=== PATIENT | male | born 2000 | race Caucasian/White ===

== ENCOUNTER 2024-03-10 08:23 | Observation (INO) ==
--- NOTE | 2024-03-10 08:41 | Emergency Department Note ---
Impression & Plan Vomiting and diarrhea, Acute dehydration, Leukocytosis, Hypomagnesemia ED Provider Note NAME: SHELLI MANUEL AGE: 23 SEX: M : 2000 ARRIVES VIA: Ambulance INFORMANT: [Patient] ED PROVIDER(S): [Tim Narayanan MD] CHIEF COMPLAINT: Vomiting and diarrhea HISTORY OF PRESENT ILLNESS: The patient is a 23-year-old male who states she has had 4 hours of vomiting and diarrhea. He has some crampy abdominal pain. Mostly, he complains of the nausea and dry heaves. The patient does present by ambulance. He denies sick contacts or bad food eaten. This seemed to come on him fairly suddenly this morning just 4 hours ago. He does admit to drinking some alcohol, vodka, 48 hours ago, he does not believe he is hung over. PMHx/PSHx/Social Hx: See Below PHYSICAL EXAM: GENERAL: Patient is in mild distress, seems uncomfortable. HEENT: No acute trauma, normocephalic atraumatic, mucous membranes moist, no nasal congestion. NECK: No stridor, no adenopathy, no meningismus, trachea is midline. LUNGS: Clear to auscultation bilaterally, no wheeze, no rhonchi, breath sounds equal. HEART: Mildly tachycardic, regular rhythm, no murmurs. ABDOMEN: Soft, no distention, mildly diffusely tender. EXTREMITIES: No cyanosis, full range of motion of all the joints without pain or difficulty. NEUROLOGIC: Oriented x 3, no acute motor or sensory deficits, no focal weakness. SKIN: No jaundice, no diaphoresis. DIFFERENTIAL DIAGNOSIS: Foodborne or viral illness, bacterial intestinal infection, electrolyte imbalance, dehydration, among others. EMERGENCY DEPARTMENT PROCEDURES: MEDICAL DECISION MAKING: There is a mild leukocytosis, this could be consistent with infection or just his vomiting. There is a normal hemoglobin and platelet count. Magnesium somewhat low at 1.5. No renal failure. No concerning liver enzyme elevation. No evidence for pancreatitis. On exam, the patient seemed uncomfortable and was complaining of nausea. He was mildly tachycardic. The patient received IV Tylenol, IV Pepcid, IV Toradol, IV magnesium, IV Zofran and IV Phenergan. He received additional IV Zofran. He was given 2 L of IV saline. Patient was observed in the ED for over 5 hours, he is still nauseated and is not tolerating oral intake. I do not think he is safe for discharge. He will require further IV hydration and symptom control in the hospital. I spoke with the patient and case management. The on-call hospitalist was consulted. I suspect the patient's illness is viral or foodborne. Unfortunately, he has not been able to provide a stool sample for testing. Prior/Outside records/notes reviewed: Today's EMS notes describing his presentation and transport to this hospital. Imaging/x-ray results per my interpretation: Chronic Medical/Social conditions affecting care: College student. Care/Management discussed with: Case management, the on-call hospitalist. Level of care consideration(s): After review of the information above and other included data: --I believe the patient requires escalation of care to admission DISPOSITION: Admission Past Med/Surg History Problem List Gastroenteritis Social History Smoking Status: Unknown if ever smoked Feels Safe at Home: Yes Results & Data (ED) Vital Signs Vital Signs - 24 hr 03/10/24 08:30 03/10/24 09:03 03/10/24 09:35 Temperature 36.7 C Temperature Source Oral Pulse Rate 115 H 97 H Pulse Rate [Apical] 98 H Respiratory Rate 22 20 Respiratory Effort / Characteristics Non-Labored Spontaneous Non-Labored Spontaneous Respiratory Depth Normal Normal Respiratory Pattern Blood Pressure 125/99 Blood Pressure [Left Arm] 102/73 Blood Pressure Mean 107 Blood Pressure Mean [Left Arm] 82 Blood Pressure Position [Left Arm] Pulse Oximetry 97 97 Oxygen Delivery Method Room Air Room Air Sepsis Recent Fever Within 48 Hours No Sepsis New/Unexplained Change in Mental Status No Sepsis Action Taken by Nursing No Action Required 03/10/24 10:46 03/10/24 11:00 03/10/24 13:00 Temperature 36.9 C Temperature Source Oral Pulse Rate Pulse Rate [Apical] 95 H 99 H 95 H Respiratory Rate 20 15 19 Respiratory Effort / Characteristics Non-Labored Spontaneous Non-Labored Spontaneous Non-Labored Spontaneous Respiratory Depth Normal Normal Normal Respiratory Pattern Regular Blood Pressure Blood Pressure [Left Arm] 139/83 138/83 141/78 H Blood Pressure Mean Blood Pressure Mean [Left Arm] 101 101 99 Blood Pressure Position [Left Arm] Pulse Oximetry 95 98 97 Oxygen Delivery Method Room Air Room Air Room Air Sepsis Recent Fever Within 48 Hours Sepsis New/Unexplained Change in Mental Status Sepsis Action Taken by Nursing 03/10/24 13:06 03/10/24 14:00 Temperature Temperature Source Pulse Rate 100 H Pulse Rate [Apical] 97 H Respiratory Rate 17 Respiratory Effort / Characteristics Non-Labored Spontaneous Respiratory Depth Normal Respiratory Pattern Regular Blood Pressure Blood Pressure [Left Arm] 154/82 H Blood Pressure Mean Blood Pressure Mean [Left Arm] 106 Blood Pressure Position [Left Arm] Semi-fowlers Pulse Oximetry 99 Oxygen Delivery Method Room Air Sepsis Recent Fever Within 48 Hours Sepsis New/Unexplained Change in Mental Status Sepsis Action Taken by [facility] Medications Current Medication List: was personally reviewed by me Laboratory Data Attestation: I reviewed the patient's lab results. 03/10/24 09:05 03/10/24 09:05 Lab Results 03/10/24 Range/Units 09:05 WBC 12.32 H (4.8-10.8) K/ul RBC 5.81 (4.70-6.10) M/uL Hgb 17.8 (14.0-18.0) g/dl Hct 51.4 (42.0-52.0) % MCV 88.5 (80.0-100.0) fL MCH 30.6 (25.0-34.0) pg MCHC 34.6 (32.0-36.0) g/dL RDW Std Deviation 40.5 (36.4-46.3) fL RDW Coeff of Melissa 12.5 (11.5-14.5) % Plt Count 265 (130-400) K/uL MPV 9.8 (9.4-12.4) fL Immature Gran % (Auto) 0.3 % Neut % (Auto) 92.0 % Lymph % (Auto) 2.8 % Hart % (Auto) 4.5 % Eos % (Auto) 0.2 % Baso % (Auto) 0.2 % Neut # (Auto) 11.33 H (1.40-6.50) K/uL Lymph # (Auto) 0.34 L (1.20-3.40) K/uL Hart # (Auto) 0.55 (0.11-0.59) K/uL Eos # (Auto) 0.03 (0.00-0.50) K/uL Baso # (Auto) 0.03 (0.00-0.20) K/uL Immature Gran # (Auto) 0.04 (0.01-0.20) K/uL Sodium 138 (136-145) mmol/L Potassium 3.6 (3.5-5.1) mmol/L Chloride 102 (98-107) mmol/L Carbon Dioxide 24 (21-32) mmol/L Anion Gap 12 H (3-11) BUN 16 (6-23) mg/dl Creatinine 0.90 (0.6-1.4) mg/dl Est Cr Clr Drug Dosing 148.6 ml/min eGFR 124.61 BUN/Creatinine Ratio 17.8 (10-20) Glucose 136 H (70-99(Fasting)) mg/dl Calcium 9.6 (8.6-10.3) mg/dl Magnesium 1.5 L (1.7-2.4) mg/dl Total Bilirubin 1.3 H (0.2-1.0) mg/dl AST 24 (13-39) U/L ALT 32 (7-52) U/L Alkaline Phosphatase 72 (34-104) U/L Total Protein 7.2 (6.0-8.3) gm/dl Albumin 4.6 (3.4-5.0) gm/dl Globulin 2.6 (2.5-4.0) gm/dl Albumin/Globulin Ratio 1.8 (0.9-2) Lipase 10 L (11-82) U/L Administered Medications Discontinued Medications Promethazine HCl (Phenergan) 6.25 mg in 50.25 mls @ 201 mls/hr IV NOW STA Stop: 03/10/24 08:51 Last Infusion: 03/10/24 09:15 Dose: Infused Documented By: Admin: 03/10/24 08:48 Dose: 201 mls/hr Documented By: HS Sodium Chloride (Nss) 1,000 mls @ 999 mls/hr IV .Q1H1M ONE Stop: 03/10/24 09:37 Last Infusion: 03/10/24 09:49 Dose: Infused Documented By: Admin: 03/10/24 08:46 Dose: 999 mls/hr Documented By: HS Acetaminophen (Ofirmev) 1,000 mg in 100 mls @ 400 mls/hr IV NOW STA Stop: 03/10/24 08:51 Last Infusion: 03/10/24 09:15 Dose: Infused Documented By: Admin: 03/10/24 08:48 Dose: 400 mls/hr Documented By: ANNITA Magnesium Sulfate/Dextrose (Magnesium Sulfate / D5w) 1 gm in 100 mls @ 100 mls/hr IV NOW STA Stop: 03/10/24 11:25 Last Infusion: 03/10/24 11:43 Dose: Infused Documented By: Admin: 03/10/24 10:43 Dose: 100 mls/hr Documented By: ANNITA Sodium Chloride (Nss) 1,000 mls @ 999 mls/hr IV .Q1H1M ONE Stop: 03/10/24 11:27 Last Infusion: 03/10/24 11:45 Dose: Infused Documented By: Admin: 03/10/24 10:43 Dose: 999 mls/hr Documented By: ANNITA Famotidine (Pepcid 20mg Iv Push) 20 mg in 5 mls @ 2.5 mls/min IV NOW STA Stop: 03/10/24 12:06 Last Admin: 03/10/24 12:17 Dose: 2.5 mls/min Documented By: RONDA Ketorolac Tromethamine (Ketorolac Tromethamine 15 Mg/Ml Vial) 15 mg IV NOW STA Stop: 03/10/24 08:38 Last Admin: 03/10/24 08:48 Dose: 15 mg Documented By: ANNITA Ketorolac Tromethamine (Ketorolac Tromethamine 15 Mg/Ml Vial) 10 mg IV NOW ONE Stop: 03/10/24 12:06 Last Admin: 03/10/24 12:21 Dose: 10 mg Documented By: RONDA Ondansetron HCl (Ondansetron Inj 2 Mg/Ml 2 Ml Vial) 4 mg IV NOW STA Stop: 03/10/24 08:38 Last Admin: 03/10/24 08:48 Dose: 4 mg Documented By: ANNITA Ondansetron HCl (Ondansetron Inj 2 Mg/Ml 2 Ml Vial) 4 mg IV NOW STA Stop: 03/10/24 12:06 Last Admin: 03/10/24 12:19 Dose: 4 mg Documented By: RONDA Discharge Plan Visit Data Chief Complaint: Vomiting ED Provider: Tim Narayanan Discharge Problem: Vomiting and diarrhea, Acute dehydration, Leukocytosis, Hypomagnesemia Patient Disposition: Admitted As Inpatient Condition: Fair Forms Stand Alone Forms: [facility] Referrals Referrals: PCP,NO [Physician] - Discharge Problem: Leukocytosis Qualifiers: Leukocytosis type: unspecified Qualified Code(s): D72.829 - Elevated white blood cell count, unspecified
[2024-03-10] MEDS: SODIUM CHLORIDE 0.9% 1,000 ML IV ONE ×2 (08:46→10:43)
[2024-03-10] MEDS: KETOROLAC TROMETHAMINE 15 MG/ML VIAL IV STA (08:48)
[2024-03-10] MEDS: ONDANSETRON INJ 2 MG/ML 2 ML VIAL IV STA ×2 (08:48→12:19)
[2024-03-10] MEDS: PROMETHAZINE 6.25 MG/50.25 ML BAG IV STA (08:48)
[2024-03-10] MEDS: ACETAMINOPHEN 1,000 MG/100 ML VIAL IV STA (08:48)
[2024-03-10 09:37] LABS: Hematocrit (blood only) 51.4 % (42.0-52.0); Hemoglobin 17.8 g/dl (14.0-18.0); Mean Corpuscular Hemoglobin 30.6 pg (25.0-34.0); Mean Corpuscular Hgb Conc 34.6 g/dL (32.0-36.0); Mean Corpuscular Volume 88.5 fL (80.0-100.0); Mean Platelet Volume 9.8 fL (9.4-12.4); Platelet Count 265 K/uL (130-400); RDW Coefficient of Variation 12.5 % (11.5-14.5); RDW Standard Deviation 40.5 fL (36.4-46.3); Red Blood Count 5.81 M/uL (4.70-6.10); White Blood Count 12.32 K/ul (4.8-10.8)
[2024-03-10 09:56] LABS: Albumin Globulin Ratio 1.8 (0.9-2); Albumin Level 4.6 gm/dl (3.4-5.0); BUN Creatinine Ratio 17.8 (10-20); Bilirubin,Total 1.3 mg/dl (0.2-1.0); Calcium 9.6 mg/dl (8.6-10.3); Creatinine Clr Calc Pharmacy 148.6 ml/min; Globulin 2.6 gm/dl (2.5-4.0); Magnesium 1.5 mg/dl (1.7-2.4); Potassium 3.6 mmol/L (3.5-5.1); Total Protein 7.2 gm/dl (6.0-8.3)
[2024-03-10 09:59] LABS: Basophils # (auto) 0.03 K/uL (0.00-0.20); Basophils % (auto) 0.2 %; Eosinophils # (auto) 0.03 K/uL (0.00-0.50); Eosinophils % (auto) 0.2 %; Immature Granulocytes # (auto) 0.04 K/uL (0.01-0.20); Immature Granulocytes % (auto) 0.3 %; Lymphocytes # (auto) 0.34 K/uL (1.20-3.40); Lymphocytes % (auto) 2.8 %; Monocytes # (auto) 0.55 K/uL (0.11-0.59); Monocytes % (auto) 4.5 %; Neutrophils # (auto) 11.33 K/uL (1.40-6.50)
[2024-03-10] MEDS: MAGNESIUM SULFATE / D5W 1 GM/100 ML BAG IV STA (10:43)
[2024-03-10] MEDS: FAMOTIDINE 20MG IV PUSH 20 MG/5 ML SYR IV STA (12:17)
[2024-03-10] MEDS: KETOROLAC TROMETHAMINE 15 MG/ML VIAL IV ONE (12:21)
--- NOTE | 2024-03-10 14:27 | History & Physical Report ---
<Statement entered by Kisha Hall MD - 03/10/24 17:46> I have reviewed vital signs, chart notes, labs and imaging. I have personally seen, evaluated and examined the patient. I have also discussed the management of the patient with the Resident and I agree with the exam findings documented in the history and physical examination and the documented assessment and plan unless otherwise stated below. 23-year-old student without significant medical history admitted for refractory nausea and vomiting, also has diarrhea. Stool was positive for norovirus my exam he is sleepy but oriented x 4, abdomen is soft nontender and nondistended I reviewed the EKG tracing which appears normal A/p: acute norovirus gastroenteritis with refractory nausea and vomiting, dehydration, mild hypomagnesemia, mild bilirubin elevation with LFTs otherwise normal - IV fluids and antiemetics until able to tolerate oral liquids consistently then be discharged home. okay for as needed Imodium - replaced hypomagnesemia - anticipate discharge tomorrow morning, a.m. CMP - okay for discharge tonight if he improves a lot and maintaining oral hydration Date of Service March 10, 2024 Assessment & Plan (1) Gastroenteritis: Plan: 23 y/o male with acute gastroenteritis will admit for IV fluids and symptomatic treatment Admit to Med/Surg Labs only remarkable for Mild leukocytosis s/p IV NSS 2 L on ED s/p IV Zofran, IV ketorolac and IV promethazine, IV mag Continue prn Zofran 6 hrs Reglan 5 mg once now Pepcid 20 mg BID PRN Acetaminophen Lactate ringer 125ml/hr, 1 bag Stool culture pending Clear diet for dinner, advanced as tolerated CMP, CBC AM (2) Hypomagnesemia: Plan: Mag 1.5 Replaced with 1 gm Mag Magnesium AM Plan FEN: Clear liquids, advanced as tolerated Code status: Full DVT ppx: Ambulation Dispo: med/surg History of Present Illness Primary Care Provider: Abdelrahman Castillo MD 23 y/o male with PMH of Asthma. Presented to the ED due to vomiting and diarrhea. Started this morning at 4 am. He had more that 6 episodes of vomiting and 2 of diarrhea. Denied any bloody stools. He refers Sunday had 4 shots of Vodka, denied any other drugs. Sunday he was feeling well. He stated had some chills early in the morning. No sick contacts. Had pancakes for dinner with a friend. Friend is feeling well. He was feeling better after IV Zofran but symptoms returned and he had another episode of vomiting in the ED. Last diarrhea was this morning. He refers some diffuse abdominal pain 2/10. Denied any runny nose, CP, palpitations, congestion, cough or headaches ED course: IV zofran, 2L of NSS, IV ketorolac and IV promethazine, IV mag Labs remarkable for mild leucocytosis (12.30). Magnesium 1.2. Normal lipase. Normal liver function. Past Med/Surg History Problem List (Updated 03/10/24 @ 15:15 by Dora Lucas MD) Hypomagnesemia Gastroenteritis Medical History (Updated 03/10/24 @ 15:15 by Dora Lucas MD) Asthma Social History Smoking Status: Unknown if ever smoked Feels Safe at Home: Yes Review of Systems Review of Systems: as per HPI Physical Exam Constitutional: WD/WN, vitals as above Eyes: PERRL, conjunctivae normal, anicteric sclerae Respiratory: normal respiratory effort, lungs clear to auscultation Cardiovascular: RRR, no murmur, no edema Gastrointestinal (Abdomen): Inspection/Auscultation: abdomen normal to inspection and normal bowel sounds; abdomen not distended Pe rcussion/Palpation: abdomen soft (Diffuse tenderness); no guarding and abdomen not rigid Musculoskeletal: no cyanosis or clubbing, extremities motor strength 5/5 Results & Data Results & Data Vital Signs (Past 12 Hours) Vital Signs Temp Pulse Pulse Resp BP BP Pulse Ox 03/10/24 14:00 97 H 17 154/82 H 99 03/10/24 13:06 100 H 03/10/24 13:00 36.9 C 95 H 19 141/78 H 97 03/10/24 11:00 99 H 15 138/83 98 03/10/24 10:46 95 H 20 139/83 95 03/10/24 09:35 98 H 20 102/73 97 03/10/24 09:03 97 H 03/10/24 08:30 36.7 C 115 H 22 125/99 97 O2 Del Method 03/10/24 14:00 Room Air 03/10/24 13:06 03/10/24 13:00 Room Air 03/10/24 11:00 Room Air 03/10/24 10:46 Room Air 03/10/24 09:35 Room Air 03/10/24 09:03 03/10/24 08:30 Room Air Resident Activity Tracking Resident Involvement: Resident Care Provided Care Provided: Adult Hospital Medicine
[2024-03-10] MEDS ORDERED: Patient's ALLERGY Info needs ENTERED STA (14:46)
[2024-03-10] MEDS ORDERED: ONDANSETRON INJ 2 MG/ML 2 ML VIAL IV PRN (16:05)
[2024-03-10] MEDS: SODIUM CHLORIDE 0.9% 1,000 ML IV SCH (16:30)
[2024-03-10] MEDS: METOCLOPRAMIDE HCL INJ 5 MG/ML 2 ML VIAL IV ONE (16:33)
[2024-03-10 17:03] LABS: Adenovirus F 40/41 PCR Not Detected (NotDetected); Astrovirus PCR Not Detected (NotDetected); Campylobacter PCR Not Detected (NotDetected); Cryptosporidium PCR Not Detected (NotDetected); Cyclospora cayetanensis PCR Not Detected (NotDetected); Entamoeba histolytica PCR Not Detected (NotDetected); Enteroaggregative E.coli(EAEC) Not Detected (NotDetected); Enteropathogenic E.coli (EPEC) Not Detected (NotDetected); Enterotoxigenic E.coli (ETEC) Not Detected (NotDetected); Giardia lamblia PCR Not Detected (NotDetected); Plesiomonas shigelloides PCR Not Detected (NotDetected); Rotavirus A PCR Not Detected (NotDetected); Salmonella PCR Not Detected (NotDetected); Sapovirus PCR Not Detected (NotDetected); Shiga-like Toxin E.coli (STEC) Not Detected (NotDetected); Shigella/Enteroinvasive E.coli Not Detected (NotDetected); Vibrio cholerae PCR Not Detected (NotDetected); Vibrio species PCR Not Detected (NotDetected); Yersinia enterocolitica PCR Not Detected (NotDetected)
[2024-03-10 17:09] LABS: Norovirus GI/GII PCR DETECTED (NotDetected)
[2024-03-10] MEDS: PANTOprazole 40 MG TAB PO STA (17:14)
[2024-03-10] MEDS: ACETAMINOPHEN 325 MG TAB PO PRN (20:29)
[2024-03-10] MEDS: FAMOTIDINE 20 MG TAB PO SCH (20:29)
[2024-03-11 04:43] LABS: Appearance Urine Clear (Clear); Bacteria Urine Automated None Seen (None Seen); Bilirubin Urine Negative (Negative); Blood Urine Negative (Negative); Cast Urine Automated 0-2 /lpf (0-2); Color Urine Yellow; Epithelial Cell Urine Auto 0-2 /hpf (0-2); Glucose Urine UA Negative (Negative); Ketones Urine Trace (Negative); Leukocyte Esterase Urine Negative (Negative); Nitrite Urine Negative (Negative); Protein Urine 1+ (Negative); RBC Urine Automated 0-2 /hpf (0-2); Specific Gravity Urine 1.031 (1.000-1.030); Urobilinogen Urine Negative (Negative); WBC Urine Automated 0-5 /hpf (0-5)
[2024-03-11 07:11] LABS: Hematocrit (blood only) 40.6 % (42.0-52.0); Hemoglobin 13.9 g/dl (14.0-18.0); Mean Corpuscular Hemoglobin 30.8 pg (25.0-34.0); Mean Corpuscular Hgb Conc 34.2 g/dL (32.0-36.0); Mean Corpuscular Volume 89.8 fL (80.0-100.0); Platelet Count 187 K/uL (130-400); RDW Coefficient of Variation 12.7 % (11.5-14.5); RDW Standard Deviation 41.9 fL (36.4-46.3); Red Blood Count 4.52 M/uL (4.70-6.10); White Blood Count 5.57 K/ul (4.8-10.8)
[2024-03-11 07:26] LABS: Albumin Globulin Ratio 1.6 (0.9-2); Albumin Level 3.2 gm/dl (3.4-5.0); BUN Creatinine Ratio 14.8 (10-20); Bilirubin,Total 1.1 mg/dl (0.2-1.0); Calcium 7.5 mg/dl (8.6-10.3); Creatinine Clr Calc Pharmacy 165.2 ml/min; Magnesium 1.6 mg/dl (1.7-2.4); Potassium 2.7 mmol/L (3.5-5.1); Total Protein 5.2 gm/dl (6.0-8.3)
[2024-03-11 07:53] LABS: Basophils # (auto) 0.01 K/uL (0.00-0.20); Basophils % (auto) 0.2 %; Immature Granulocytes # (auto) 0.02 K/uL (0.01-0.20); Immature Granulocytes % (auto) 0.4 %; Lymphocytes # (auto) 0.46 K/uL (1.20-3.40); Lymphocytes % (auto) 8.3 %; Monocytes # (auto) 0.43 K/uL (0.11-0.59); Monocytes % (auto) 7.7 %; Neutrophils # (auto) 4.65 K/uL (1.40-6.50); Neutrophils % (auto) 83.4 %
[2024-03-11] MEDS: POTASSIUM CHLORIDE CRTAB 20 MEQ TABCR PO STA ×3 (07:58→13:57)
[2024-03-11] MEDS ORDERED: LOPERAMIDE HCL 2 MG CAP PO PRN (09:13)
[2024-03-11] MEDS: MAGNESIUM SULFATE / D5W 1 GM/100 ML BAG IV SCH (10:04)
[2024-03-11] MEDS: SODIUM CHLORIDE 0.9% 1,000 ML IV SCH (10:04)
--- NOTE | 2024-03-11 10:53 | Hospitalist Progress Note ---
Date of Service March 11, 2024 Assessment & Plan (1) Gastroenteritis due to norovirus: Plan: 23 y/o Male with acute gastroenteritis due to Norovius admitted for IV fluids and symptomatic treatment Labs only remarkable for Mild leukocytosis (03/10), Normal (03/11) Continue prn Zofran 6 hrs Pepcid 20 mg BID PRN Acetaminophen Normal Saline 0.9% 125 ml/hr Clear diet for dinner, advanced as tolerated Patient is feeling tired, weak and having episodes of diarrhoea. Will plan for discharge tomorrow if he can tolerate oral feeds. (2) Hypomagnesemia: Plan: Mag 1.5 (03/10) Replaced with 1 gm Mag Mag 1.6 (03/11) (3) Hypokalemia due to excessive gastrointestinal loss of potassium: Plan: Potassium (03/11):2.7 40 mEq KCL was given PO stat. Repeat Potassium level after 3 hour is 3.1 Plan FEN: Clear liquids, advanced as tolerated Code status: Full DVT ppx: Ambulation Dispo: med/surg Admission and Anticipated Discharge Date Admission Date: March 10, 2024 Supervising Physician Co-Signing Physician Notes I personally examined the patient and verified all talley points of history and exam, discussed case, and agree with decision making with Dr Guzman Feeling better but still lousy. Able to eat but still having a lot of diarrheaprobably every 2-3 hours. Vitals noted, in general he is awake and alert pleasant no distress but appears very fatigued. HEENT normocephalic atraumatic mucous membranes moist. Breathing unlabored no accessory muscle use good effort. Skin without rashes pallor or icterus. gastroenteritis due to norovirus with dehydration/ hypokalemia/hypomagnesemiaseems to be improving but still fairly weak and still appears a bit dehydratedcontinue IV fluids, continue supportive care, continue electrolyte supplementation. Hopefully home soon. Subjective Patient was feeling sleepy and tired. No more episodes of nausea and vomiting after admission. He is still having diarrhoea every 3 hour. Review of Systems Review of Systems: as per HPI Physical Exam Constitutional: WD/WN, vitals as above Eyes: PERRL, conjunctivae normal, anicteric sclerae Respiratory: normal respiratory effort, lungs clear to auscultation Cardiovascular: RRR, no murmur, no edema Gastrointestinal (Abdomen): Inspection/Auscultation: abdomen normal to inspection and normal bowel sounds; abdomen not distended Percus mercy/Palpation: abdomen soft (Diffuse tenderness); no guarding and abdomen not rigid Musculoskeletal: no cyanosis or clubbing, extremities motor strength 5/5 Results & Data Results & Data Vital Signs (Past 12 Hours) Vital Signs Temp Pulse Resp BP Pulse Ox O2 Del Method 03/11/24 08:06 36.6 C 77 17 100/66 97 Room Air
[2024-03-11 12:15] LABS: BUN Creatinine Ratio 12.8 (10-20); Calcium 7.6 mg/dl (8.6-10.3); Creatinine Clr Calc Pharmacy 171.5 ml/min; Potassium 3.1 mmol/L (3.5-5.1)
--- NOTE | 2024-03-11 17:50 | Billing Data ---
Date of Service March 11, 2024 Coding Level of Care Code 06266 SUB INP/OBS CARE
[2024-03-11] MEDS: guaiFENesin 600 MG TABCR PO SCH (21:12)
[2024-03-11 22:10] VITALS: RESP 16; O2SAT 98
--- NOTE | 2024-03-11 23:32 | Electrocardiogram Report ---
Test Reason : Blood Pressure : */* mmHG Vent. Rate : 100 BPM Atrial Rate : 100 BPM P-R Int : 142 ms QRS Dur : 84 ms QT Int : 330 ms P-R-T Axes : 57 51 51 degrees QTcB Int : 425 ms Normal sinus rhythm Possible Left atrial enlargement Borderline ECG No previous ECGs available Confirmed by Miguelito Lopez ([id number]) on 03/11/2024 11:32:02 PM Referred By: REFERRED SELF Confirmed By: Miguelito Lopez
[2024-03-12 06:38] LABS: Albumin Globulin Ratio 1.6 (0.9-2); Albumin Level 3.1 gm/dl (3.4-5.0); BUN Creatinine Ratio 12.5 (10-20); Bilirubin,Total 0.3 mg/dl (0.2-1.0); Calcium 7.9 mg/dl (8.6-10.3); Creatinine Clr Calc Pharmacy 185.8 ml/min; Potassium 3.9 mmol/L (3.5-5.1); Total Protein 5.1 gm/dl (6.0-8.3)
[2024-03-12 07:58] VITALS: TEMP 97.7
--- NOTE | 2024-03-12 09:22 | Discharge Summary ---
Date of Service March 12, 2024 Admission HPI Per Admitting Provider 23 y/o male with PMH of Asthma. Presented to the ED due to vomiting and diarrhea. Started this morning at 4 am. He had more that 6 episodes of vomiting and 2 of diarrhea. Denied any bloody stools. He refers Sunday had 4 shots of Vodka, denied any other drugs. Sunday he was feeling well. He stated had some chills early in the morning. No sick contacts. Had pancakes for dinner with a friend. Friend is feeling well. He was feeling better after IV Zofran but symptoms returned and he had another episode of vomiting in the ED. Last diarrhea was this morning. He refers some diffuse abdominal pain 2/10. Denied any runny nose, CP, palpitations, congestion, cough or headaches ED course: IV zofran, 2L of NSS, IV ketorolac and IV promethazine, IV mag Labs remarkable for mild leucocytosis (12.30). Magnesium 1.2. Normal lipase. Normal liver function. Admission Exam Per Admitting Provider Constitutional: WD/WN, vitals as above Eyes: PERRL, conjunctivae normal, anicteric sclerae Respiratory: normal respiratory effort, lungs clear to auscultation Cardiovascular: RRR, no murmur, no edema Gastrointestinal (Abdomen): Inspection/Auscultation: abdomen normal to inspection and normal bowel sounds; abdomen not distended Percussion/Palpation: abdomen soft (Diffuse tenderness); no guarding and abdomen not rigid Musculoskeletal: no cyanosis or clubbing, extremities motor strength 5/5 Principal Diagnosis Norovirus Infection Discharge Exam Constitutional WD/WN, vitals as above Eyes PERRL, conjunctivae normal, anicteric sclerae Respiratory normal respiratory effort, lungs clear to auscultation Cardiovascular RRR, no murmur, no edema Gastrointestinal (Abdomen) Inspection/Auscultation: abdomen normal to inspection and normal bowel sounds; abdomen not distended Percussion/Palpation: abdomen soft (Diffuse tenderness); no guarding and abdomen not rigid Musculoskeletal no cyanosis or clubbing, extremities motor strength 5/5 Discharge Data Allergies Allergy/AdvReac Type Severity Reaction Status Date / Time No Known Drug Allergies Allergy Unknown Verified 03/10/24 16:13 Consultations 03/10/24 14:02 ED Decision to Admit Stat Hospital Course (1) Gastroenteritis due to norovirus: 23 y/o Male with acute gastroenteritis due to Norovius admitted for IV fluids and symptomatic treatment Labs only remarkable for Mild leukocytosis (03/10), Normal (03/11) Received prn Zofran 6 hrs, Pepcid 20 mg BID, and PRN Acetaminophen S/p Normal Saline 0.9% 125 ml/hr Diet advanced and tolerating well, diarrhea improved Discharge to home today, may continue Mucinex, Pepcid, and Imodium PRN for symptoms Encouraged adequate hydration to 64 ounces of water daily (2) Hypomagnesemia: Repleted, resolved (3) Hypokalemia due to excessive gastrointestinal loss of potassium: Repleted, resolved Plan FEN: Regular Code status: Full DVT ppx: Ambulation Dispo: Home, self care Total Time Total Time Spent Total Time Spent (In Minutes): See attending attestatoin Discharge Plan Discharge Items Patient Disposition: Home - Self-Care Reason For Visit: GASTROENTERITIS / DEHYDRATION Discharge Diagnosis: Norovirus infection Dehydration Condition on Discharge: Good Activity: Per Instructions section Non-emergency contact: Primary Care Provider Call non-emergency contact if: you have any medication questions, your symptoms worsen and you have a fever Follow-up/Referrals: Abdelrahman Castillo MD [Primary Care Provider] - Diet: Regular Addtl Attending Provider Instructions: You were admitted to the hospital for supportive care in the setting of a Norovirus infection which caused severe nausea, emesis, and diarrhea. During this time, your electrolytes were repleted and you received fluids via IV. You were tachycardic when you arrived, but with fluids and electrolyte supplementation your vitals returned to normal. It is important to continue supportive measures upon return to home. Continue to drink at least 64 ounces of water each day as well as eat a regular diet. You may continue to take over the counter Mucinex (for cough), Pepcid (for indigestion), and Imodium (for diarrhea) as needed. If you develop difficulty eating and drinking or develop a high fever, please contact your PCP or return to the ED for ongoing care. Please follow up with your PCP within 1-2 weeks of discharge. Pending Studies at Discharge: No Stand-Alone Forms: [facility], Work/School Release, Smoking Cessation Medications and DC Order Discharge Orders: Discharge Order (Routine); Ordered 03/12/24 Ordered By: Brandon Ayala Admission Data Admit Date/Time: 03/10/24 14:30 Attending Provider: Charlie Malave Admit Provider: Dora Mccabe Primary Care Provider: Abdelrahman Castillo Other Providers: Kisha Hall Other Interventions: Discharge Summary Assessment (RN) Last Done: 03/12/24 09:55 Supervising Physician Co-Signing Physician Notes I personally examined the patient and verified all talley points of history and exam, discussed case, and agree with decision making with Dr Guzman no diarrhea since yesterday. Vitals noted, in general he is awake and alert pleasant no distress. HEENT normocephalic atraumatic mucous membranes moist. Breathing unlabored no accessory muscle use good effort. Skin without rashes pallor or icterus. gastroenteritis due to norovirus with dehydration/ hypokalemia/hypomagnesemiaoverall improving; safe/stable for home. outpt f/u w PCP otherwise as above Resident Activity Tracking Resident Involvement: Resident Care Provided Care Provided: Adult Hospital Medicine
[2024-03-12 09:57] VITALS: BP 100/66; PULSE 80
--- NOTE | 2024-03-12 14:08 | Billing Data ---
Date of Service March 12, 2024 Coding Level of Care Code 16633 IN/OBS DISCH 30 MIN/LESS
== END 2024-03-12 12:53 | disposition home or self-care (01) ==
LOC: ED 08:23 → 3E 08:23 → SUATTDRO 14:30 → 3E 15:46